=== PATIENT | male | born 1950 | race Caucasian/White ===

== ENCOUNTER → 2016-06-14 | Outpatient (CLI) | payer OTHER | LOC: M WUC 09:37 | PROVIDERS: ATTEND Physician Assistant Medical | DX: E78.2 Mixed hyperlipidemia (principal); E55.9 Vitamin D deficiency, unspecified ==

== ENCOUNTER → 2016-09-01 | Outpatient (CLI) | payer OTHER ==
[~2016-09-01] VITALS: Ht 185.4 cm; Wt 111.1 kg
[~2016-09-01] MED LIST: ARTHTAB4 PO; ASPI1TAB PO; CAND32TA9 PO; CHLO125TA PO; FENO130C PO; LIPI20TA PO; LOVA1CAP17 PO; MONT10TA2 PO; NS 1,000 ML IV SCH; OMEP20CA3 PO; PROPOFOL 200 MG/20 ML VIAL As Ordered ONE; TRAM50TA2 PO; VITA-112 PO; XYZA5TAB2 PO
--- NOTE | 2016-09-01 11:05 | ROOR ---
Patient Name: Danny Parker Procedure Date: 09/01/2016 10:33 AM Date of : 1950 Age: 66 Room: [facility] Gender: Male Note Status: Finalized Procedure: Colonoscopy Indications: Screening for colorectal malignant neoplasm, Incidental change in bowel habits noted Providers: Dharmesh HOPPER MD Referring MD: ANNA RIGGS MD Requesting Provider: Medicines: Monitored Anesthesia Care Complications: No immediate complications. Procedure: Pre-Anesthesia Assessment: - The heart rate, respiratory rate, oxygen saturations, blood pressure, adequacy of pulmonary ventilation, and response to care were monitored throughout the procedure. The Colonoscope was introduced through the anus and advanced to 5 cm into the ileum. The colonoscopy was performed without difficulty. The patient tolerated the procedure well. The quality of the bowel preparation was good. Findings: The perianal and digital rectal examinations were normal. (Exam: Complete, Prep: Good or Excellent.) The terminal ileum contained a single erosion. This was biopsied with a cold forceps for histology. Internal hemorrhoids were found during retroflexion. The hemorrhoids were mild. A few small-mouthed diverticula were found in the sigmoid colon. The entire examined colon appeared normal on direct and retroflexion views. Impression: - The entire examined colon is normal on direct and retroflexion views. - A single erosion in the terminal ileum. Biopsied. - Internal hemorrhoids. - Mild diverticulosis in the sigmoid colon. Recommendation: - Telephone endoscopist for pathology results in 2 weeks. - Repeat colonoscopy in 10 years for screening purposes. Dharmesh Hopper MD Dharmesh HOPPER MD 09/01/2016 11:04:59 AM This report has been signed electronically. Number of Addenda: 0 Note Initiated On: 09/01/2016 10:33 AM Estimated Blood Loss: Estimated blood loss: none.
[2016-09-01 11:25] VITALS: BP 148/91
== END | disposition home or self-care (01) ==
LOC: M OPP 09:14
PROVIDERS: ATTEND Internal Medicine Gastroenterology
DX: R19.4 Change in bowel habit (principal); K64.8 Other hemorrhoids; K57.30 Diverticulosis of large intestine without perforation or abscess without bleeding; K63.3 Ulcer of intestine; E78.5 Hyperlipidemia, unspecified; K44.9 Diaphragmatic hernia without obstruction or gangrene; M19.90 Unspecified osteoarthritis, unspecified site; Z85.828 Personal history of other malignant neoplasm of skin; Z88.2 Allergy status to sulfonamides; Z88.8 Allergy status to other drugs, medicaments and biological substances; Z79.899 Other long term (current) drug therapy

== ENCOUNTER → 2016-11-03 | Outpatient (CLI) | payer OTHER ==
[~2016-11-03] MED LIST changes: +CHLO25TA PO; +LEVOTAB10 PO; -NS 1,000 ML IV SCH; +PATA0.6S; -PROPOFOL 200 MG/20 ML VIAL As Ordered ONE
[2016-11-03 10:55] LABS: MEAN CORPUSCULAR HEMOGLOBIN 29.6 pg (27.0-33.0); MEAN CORPUSCULAR HGB CONC 33.7 g/dl (32.0-36.5); MEAN CORPUSCULAR VOLUME 87.9 fl (80.0-96.0); RED CELL DISTRIBUTION WIDTH 13.8 % (11.5-14.5); WHITE BLOOD COUNT 3.6 K/mm3 (4.0-10.0)
[2016-11-03 11:00] LABS: INR 1.11
--- NOTE | 2016-11-03 11:00 | REP ---
Clinical: Pre admission . Comparison: 10/27/2015 . Technique: PA and lateral. Findings: The mediastinum and cardiac silhouette are normal. The lung gil are clear and without acute consolidation, effusion, or pneumothorax. The skeletal structures are intact and normal. Impression: 1. No acute cardiopulmonary process. Signed by Felipe Aviles MD 11/03/2016 10:52 A
[2016-11-03 11:13] LABS: ALBUMIN 4.1 GM/DL (3.2-5.2); ALBUMIN/GLOBULIN RATIO 1.41 (1.00-1.93); ALKALINE PHOSPHATASE 44 U/L (45-117); ALT/SGPT 42 U/L (12-78); ANION GAP 4 MEQ/L (8-16); AST/SGOT 22 U/L (15-37); BILIRUBIN,TOTAL 0.6 MG/DL (0.2-1.0); BLOOD UREA NITROGEN 18 MG/DL (7-18); CALCIUM LEVEL 8.8 MG/DL (8.8-10.2); CARBON DIOXIDE LEVEL 26 MEQ/L (21-32); CHLORIDE LEVEL 110 MEQ/L (98-107); CREATININE FOR GFR 1.13 MG/DL (0.70-1.30); GLOMERULAR FILTRATION RATE > 60.0 (>49); GLUCOSE, FASTING 91 MG/DL (80-110); POTASSIUM SERUM 4.2 MEQ/L (3.5-5.1); SODIUM LEVEL 140 MEQ/L (136-145)
--- NOTE | 2016-11-03 14:41 | ECGEPIP ---
Stationary ECG Study [facility] Test Date: 2016-11-03 Pat Name: GABY MULTANI Department: Room: - Gender: M [employer] Specialist: BARRETT : 1950 Requested By: Andrea Desouza Order Number: [id number] Reading MD: Lv Gan Measurements Intervals [place] Rate: 63 P: -4 PA: 146 QRS: -15 QRSD: 106 T: 40 QT: 395 QTc: 407 Interpretive Statements SINUS RHYTHM Normal Electronically Signed On 11-03-2016 14:41:37 EDT by Lv Gan
--- NOTE | 2016-11-08 19:10 | HPE ---
DATE OF PLANNED ADMISSION: 11/10/2016 ATTENDING PHYSICIAN: Andrea Navarro MD CHIEF COMPLAINT: Left knee pain and stiffness. HISTORY: Danny is a 66-year-old male with progressively worsening left knee pain and stiffness. He has failed to improve with conservative management. He has elected for surgery for his continued symptoms with weightbearing activities and activities of daily living. He has consented for a left total knee arthroplasty with Dr. Navarro. Medical optimization pending with Dr. Ballard and is not present for review today. CURRENT MEDICATIONS: - tramadol 50 mg every 4 to 6 hours as needed for pain - Patanase 0.6% daily - vitamin D3 2000 units daily - Singulair 10 mg daily - omeprazole 20 mg daily - Lovaza 2 grams, two by mouth twice daily - Lipitor 40 mg daily - Ativan 16 mg daily - Xyzal 5 mg at bedtime - fenofibrate 50 mg daily - chlorthalidone 25 mg daily - Veramyst 27.5 mcg daily ALLERGIES: SULFA DRUGS, CEFTIN. MEDICAL HISTORY: Hypertension. Hyperlipidemia. Gastroesophageal reflux. Arthritis. SURGICAL HISTORY: Tonsillectomy. Bilateral shoulder surgery. SOCIAL HISTORY: The patient is a former smoker and occasionally drinks alcoholic beverages. REVIEW OF SYSTEMS: The patient denies, fever, chills, nausea, vomiting or diarrhea. He denies chest pain, shortness of breath, lightheadedness, or headaches. He denies any recent upper respiratory or urinary tract infection symptoms. He does have persistent pain in the left knee with weightbearing activities. PHYSICAL EXAMINATION: Well-nourished, well-developed male in no apparent distress. Musculoskeletal: Inspection of the left knee reveal no gross abnormalities. Skin is intact. The patient is in a well-fitting knee brace. There is no irritability elicited with range of motion. His calf is soft and nontender to palpation. The patient does have both medial and lateral joint line tenderness. His pedal pulses are palpable. Neck: Supple without lymphadenopathy or jugular venous distention. Lungs: Clear to auscultation bilaterally. Heart: Regular rate and rhythm. Abdomen: Bowel sounds are present. VITAL SIGNS: Height 6 foot 1 inch, weight 246.2 pounds, temperature 96.5. Blood pressure 129/85, pulse rate 75, respirations 17. LABORATORY DATA: Chest x-ray: No acute cardiopulmonary process. EKG: Sinus rhythm. Nasal and sinus culture: Normal rima. Complete blood count: WBC decreased at 3.6, RBC 4.39. Hemoglobin decreased at 13, hematocrit decreased at 38.6. Platelets decreased at 133. Erythrocyte sedimentation rate 8. Comprehensive metabolic profile: Fasting glucose 91, BUN 18, creatinine 1.13, GFR greater than 60, sodium 140, potassium 4.2. Chloride elevated at 110. Carbon dioxide 26, anion gap decreased at 4. Calcium 8.8. AST 22, ALT 42. Alkaline phosphatase decreased at 44, total bilirubin 0.6. Total protein 7.0, albumin 4.1, albumin globulin ratio 1.41. Prothrombin time 14.4, INR 1.11. Urinalysis: Positive for 1+ squamous epithelial cells and a small amount of mucus. Urine culture shows no growth. DIAGNOSIS: Symptomatic osteoarthritis of the left knee with x-rays notable for end-stage degenerative changes. PLAN: The patient has consented for a left total knee arthroplasty by Dr. Navarro.
== END ==
LOC: M ADMPAT 09:21
PROVIDERS: ATTEND Orthopaedic Surgery
DX: Z01.818 Encounter for other preprocedural examination (principal); M17.12 Unilateral primary osteoarthritis, left knee

== ENCOUNTER 2016-11-10 07:11 | Inpatient (IN) | payer OTHER ==
[2016-11-03 09:43] VITALS: BP 152/89
[2016-11-10] VITALS (8 sets, daily range): BP systolic 120–132; BP diastolic 60–76; O2SAT 97
[~2016-11-10] VITALS: Ht 190.5 cm; Wt 112.0 kg
[2016-11-10] MEDS ORDERED: ROPIvacaine 0.5% 30 ML INJECTION (J2795) As Ordered ONE (07:19)
[2016-11-10] MEDS ORDERED: TRANEXAMIC ACID 100 MG/ML 10ML VIAL As Ordered ONE (07:19)
[2016-11-10] MEDS ORDERED: EPINEPHrine INJ 1 MG/ML 1ML AMP As Ordered ONE (07:20)
[2016-11-10] MEDS ORDERED: BUPIVACAINE HCL 0.5% 10 ML VIAL As Ordered ONE (07:20)
[2016-11-10] MEDS ORDERED: ceFAZolin 1GM INJ (J0690) As Ordered ONE (07:20)
[2016-11-10] MEDS ORDERED: ACETAMINOPHEN 500 MG TAB PO ONE (07:30)
[2016-11-10] MEDS ORDERED: VANCOMYCIN HCL 1,000 MG, VIAL MATE ADAPTER 1 EACH in D5W 250 ML IV ONE ×2 (07:30→21:00)
[2016-11-10] MEDS ORDERED: LR 1,000 ML IV ONE (07:30)
[2016-11-10] MEDS: CANDESARTAN 16 MG TABLET PO SCH (09:00)
[2016-11-10] MEDS: MONTELUKAST 10 MG TAB PO SCH (09:00)
[2016-11-10] MEDS: CETIRIZINE (ZyrTEC) 10 MG TAB PO SCH (09:00)
[2016-11-10] MEDS: VITAMIN D 1,000 INTERNATIONAL UNITS TABLET PO SCH (09:00)
[2016-11-10] MEDS: OMEPRAZOLE 20 MG CAP PO SCH (09:00)
[2016-11-10] MEDS ORDERED: MIDAZOLAM INJ 2 MG/2 ML VIAL (J2250) As Ordered ONE ×2 (09:07→10:39)
[2016-11-10] MEDS ORDERED: fentaNYL 100 MCG/2 ML INJECTION (J3010) As Ordered ONE ×3 (09:07→10:39)
[2016-11-10] MEDS ORDERED: MIDAZOLAM INJ 2 MG/2 ML VIAL (J2250) IV ONE (09:45)
[2016-11-10] MEDS ORDERED: fentaNYL 100 MCG/2 ML INJECTION (J3010) IV ONE (09:45)
[2016-11-10] MEDS ORDERED: CLINDAMYCIN INJ 900MG/6ML VIAL As Ordered ONE (10:13)
[2016-11-10] MEDS ORDERED: LIDOCAINE 2% INJ 100 MG/5 ML SDV (FOR ANES.) As Ordered ONE (10:39)
[2016-11-10] MEDS ORDERED: PROPOFOL 500 MG/50 ML VIAL As Ordered ONE (10:39)
[2016-11-10] MEDS ORDERED: ONDANSETRON 4MG/2ML VIAL (J2405) As Ordered ONE (10:39)
[2016-11-10] MEDS ORDERED: PROPOFOL 200 MG/20 ML VIAL As Ordered ONE (10:43)
[2016-11-10] MEDS ORDERED: ePHEDrine SULFATE 25 MG/5 ML(5MG/ML) SYRINGE As Ordered ONE (10:55)
[2016-11-10] MEDS ORDERED: MORPHINE 1MG/ML IN 0.9% NACL 100ML IV BAG As Ordered ONE (12:40)
[2016-11-10] MEDS ORDERED: METOCLOPRAMIDE INJ 10MG/2ML VIAL (J2765) IV PRN (13:00)
[2016-11-10] MEDS ORDERED: PERCOCET 5MG/325MG TAB PO PRN (13:00)
[2016-11-10] MEDS ORDERED: MEPERIDINE INJ 25 MG/ML VIAL (J2175) IV PRN (13:00)
[2016-11-10] MEDS ORDERED: fentaNYL 100 MCG/2 ML INJECTION (J3010) IV PRN (13:00)
[2016-11-10] MEDS ORDERED: ONDANSETRON 4MG/2ML VIAL (J2405) IV PRN ×2 (13:00→13:15)
--- NOTE | 2016-11-10 13:08 | CR.PDOC ---
[facility] Consultation Consultation HOSPITALIST CONSULT NOTE Date of consult: 11/10/2016 Referring Provider: Dr. Franklin PCP: Dr. Ballard in [place] Reason for Consult: Medical management of chronic issues HPI: 66-year-old male with hypertension, hyperlipidemia, GERD, seasonal allergies, osteoarthritis who underwent elective left total knee arthroplasty today with Dr. Franklin. We have been consulted for management of chronic medical issues. The patient is seen in the recovery room, following an uncomplicated surgery. He states that he feels well and denies any chest pain, difficulty breathing, or vomiting. Past medical history: Hypertension, hyperlipidemia, GERD, seasonal allergies, osteoarthritis Past surgical history:, Tonsillectomy, bilateral shoulder surgery, left total knee Family history: The patient reports multiple types of cancer affecting most of his immediate family members, he denies any hypertension or hyperlipidemia Social history: The patient denies smoking any cigarettes, but does report an occasional cigar. He states that he drinks socially but does not binge drink at any point. Allergies: Cefuroxime, sulfa Review of systems: General: Negative for fever and chills Eyes: Negative for vision changes and ocular discharge ENT: Negative For sore throat and nose bleed Cardiovascular: Negative for chest pain and palpitations Respiratory: Negative for shortness of breath and cough GI: Negative for nausea, vomiting, diarrhea, constipation Musculoskeletal: Negative for neck and back pain Skin: Negative for rash Neuro: Negative for headache, dizziness, numbness, tingling Psych: Negative for depression and suicidal ideation Endocrine: Negative for polyuria : Negative for dysuria Heme: Negative for bleeding Home meds: See below Physical exam: Vital signs: Vital Signs Date Time Temp Pulse Resp B/P (MAP) Pulse Ox O2 Delivery O2 Flow Rate FiO2 11/10/16 13:00 96.6 58 18 130/79 (96) 99 Nasal Cannula 2 Gen.: awake, alert, no acute distress Eyes: Extraocular movements intact, normal sclera ENT: Moist mucous membranes Cardiovascular: RRR, no murmurs rubs or gallops Lungs: clear to auscultation bilaterally, no rales, rhonchi, or wheeze Abdomen: Soft, NT/ND, normal BS Extremities: Intact pedal pulses bilaterally Neuro: alert and oriented 3, normal speech, no focal deficits Psych: Normal mood with congruent affect Labs and radiology: None to review Assessment and plan: 66-year-old male with hypertension, hyperlipidemia, GERD, osteoarthritis, seasonal allergies who underwent elective left total knee arthroplasty today with Dr. Franklin. We have been consulted for management of chronic medical conditions. 1. Osteoarthritis: Management as per orthopedic team; status post left TKA today. 2. Hypertension: Continue home ARB and chlorthalidone. 3. Hyperlipidemia: Continue home statin and omega-3. 4. GERD: Continue home PPI. 5. Seasonal allergies: Continue home Singulair. Patient takes Xyzal at home, which we do not have on formulary, so we will substitute Zyrtec. DVT prophylaxis: As per orthopedic team; currently holding home aspirin given surgery today Thank you for this consult. We will continue to follow along with you; Dr. Anthony will assume coverage tomorrow morning. Vital Signs/I&O Vital Signs Date Time Temp Pulse Resp B/P (MAP) Pulse Ox O2 Delivery O2 Flow Rate FiO2 11/10/16 13:00 96.6 58 18 130/79 (96) 99 Nasal Cannula 2 Allergies Coded Allergies: Unclassified Drugs (Unverified Allergy, Intermediate, BROMIDE- BLISTERS, ) Cefuroxime (Unverified Adverse Reaction, Intermediate, BLISTERS MOUTH AND HANDS, 11/03/16) Sulfa Antibiotics (Verified Adverse Reaction, Intermediate, blisters mouth and hand, 11/03/16) Home Medications Scheduled (Arthrotec 75 75-0.2 mg) 1 Tab Tab, 150 MG PO DAILY, (Reported) (Patanase) 0.6 % Spr, 2 PUFF NA DAILY, (Reported) Aspirin (Aspirin 81) 81 Mg Tab, 81 MG PO DAILY, #30 (Reported) Atorvastatin Calcium (Lipitor) 20 Mg Tab, 40 MG PO BID, (Reported) Candesartan Cilexetil (Candesartan Cilexetil) 32 Mg Tab, 32 MG PO DAILY, ( Reported) Chlorthalidone (Chlorthalidone) 12.5 Mg Halftab, 12.5 MG PO 3XW, (Reported) Monday Cholecalciferol (Vitamin D-1000) 1,000 Unit Tab, 2,000 UNIT PO DAILY, (Reported) Fenofibrate (Fenofibrate) 130 Mg Cap, 130 MG PO DAILY, (Reported) Levocetirizine Dihydrochloride (Xyzal) 5 Mg Tab, 5 MG PO DAILY, (Reported) Levocetirizine Hydrochloride (Levocetirizine Dihydrochl) 5 Mg Tab, 5 MG PO DAILY , (Reported) Montelukast Sodium (Montelukast Sodium) 10 Mg Tab, 10 MG PO DAILY, (Reported) [place] 3 Polyunsat Fatty Acids (Lovaza 1 gm) 1 Cap Cap, 1 CAP PO BID, (Reported) Omeprazole (Omeprazole) 20 Mg Cap, 20 MG PO DAILY, (Reported) Scheduled PRN Tramadol HCl (Tramadol HCl) 50 Mg Tab, 50 MG PO BIDP PRN for PAIN, (Reported) CATIE HERRERA Nov 10, 2016 13:08
[2016-11-10] MEDS ORDERED: PATIENT IS CURRENTLY ON AN ON-Q PAIN BUSTER PAIN RELIEF SYSTEM XX SCH (13:15)
[2016-11-10] MEDS ORDERED: NALBUPHINE HCL 10 MG/ML AMP (J2300) IV PRN (13:15)
[2016-11-10] MEDS ORDERED: NALOXONE INJ 0.4 MG/1 ML VIAL (J2310) IV PRN (13:15)
[2016-11-10] MEDS ORDERED: diphenhydrAMINE INJ 50MG/ML VIAL (J1200) IV PRN (13:15)
[2016-11-10] MEDS ORDERED: MORPHINE 1MG/ML IN 0.9% NACL 100ML IV BAG IV PRN (13:15)
[2016-11-10] MEDS ORDERED: FLEET ENEMA PR PRN (13:15)
[2016-11-10] MEDS ORDERED: ACETAMINOPHEN TAB 650MG DOSE (2X325MG) PO PRN (13:15)
[2016-11-10] MEDS ORDERED: EPIDURAL/PCA KEYS XX PRN (13:15)
[2016-11-10] MEDS: OMEGA-3 1050MG CAPSULE PO SCH ×2 (14:49→20:05)
[2016-11-10] MEDS: ATORVASTATIN 20 MG TAB PO SCH ×2 (14:49→20:05)
[2016-11-10] MEDS: LR 1,000 ML IV SCH (14:51)
[2016-11-10] MEDS ORDERED: WARFARIN SOD 5 MG TAB PO SCH (17:00)
--- NOTE | 2016-11-10 19:24 | RO ---
DATE OF PROCEDURE: 11/10/2016 PREOPERATIVE DIAGNOSIS: Left knee degenerative arthritis. POSTPROCEDURE DIAGNOSIS: Left knee degenerative arthritis. PROCEDURE: Left total knee arthroplasty using a size 4 femur, 4 tibia and a 15 polyethylene insert. Femoral component was cruciate-retaining. Prosthesis was made by [employer]. It was a PFC knee. SURGEON: Dr. Andrea Navarro CONSTRUCTION EQUIPMENT OVERHAULER: John Jen Lr ANESTHESIA: Left femoral nerve block with spinal. COMPLICATIONS: None. ESTIMATED BLOOD LOSS: Less than 50 mL. SPECIMENS: Joint surface. DESCRIPTION OF PROCEDURE: Antibiotics were given intravenously preoperatively, then a successful left femoral nerve block and spinal anesthetic was induced, tourniquet placed on the left upper thigh and not inflated. The left lower extremity was prepped and draped in the usual sterile fashion, elevated. Then, after appropriate time-out, tourniquet was inflated, then a longitudinal incision was made for a medial parapatellar approach to the knee. Bovie cautery was used to coagulate crossing vessels. Medial parapatellar arthrotomy performed. Subperiosteal dissection around the proximal medial portion of the tibia was performed, then the patella was everted and the knee flexed. Anterior cruciate ligament (ACL) was debrided. The drill was placed down the center of the femoral canal followed by the intramedullary zaira and then distal femoral cutting jig set at 5 degree valgus cut at 10 mm resection level for a left knee. It was pinned into position. Distal femoral cut performed. AP sizing jig measured for a size #4, which was pinned in position, followed by the 3-degree external jig. It was pinned and then the 4-in-1 block applied and secured to the distal femur. Then, the anterior, posterior, chamfer cuts performed, taking great care to protect the surrounding soft tissues. We then exposed the proximal tibia and used the extramedullary zaira to estimate our position of being parallel to the mechanical axis of the tibia. Referencing off the medial tibial condyle at 4 mm resection level, the jig was set and pinned into position and extramedullary zaira was used as a secondary check to confirm that we appeared to be parallel to the mechanical axis of the tibia. We then performed a proximal tibial osteotomy, then placed the lamina scallop raker laterally and performed a completion medial meniscectomy, debridement of the posteromedial osteophytes, placed the lamina scallop raker then medially and performed a completion lateral meniscectomy, debridement of the posterolateral osteophytes. Spacer blocks then were trialed. The 10 was quite loose, the 12.5 was still a bit loose to varus/valgus stress testing, mainly in extension, reasonably snug in flexion, but I felt the 15 would be the best stability for him and still allowed good flexion and he had a full extension. I exposed the proximal tibia then at this point, sized for a #4 tibial tray, which was pinned into position, followed by the reamer and broach, then the trial polyethylene, then the trial femoral component, brought the knee into extension, everted the patella, performed a patellar osteotomy, sized for a 35 button, the lug holes were drilled. The patellar trial was placed, and the patellofemoral tracking was anatomic. Thus, at this point, I felt this was the acceptable stability and implant choice; thus, I drilled the lug holes for the femur, then removed all of the trial components. Mrs. Jen Lr mixed the cement on the back table as I prepared the bony surfaces for cementing with a copious amount of pulsatile lavage irrigant solution. She was also critical to the success of the procedure by helping to provide appropriate soft tissue retraction and manipulation of the knee as needed, to close the wound, helped prepare the patient amongst many other tasks. Once all of the bony surfaces had been thoroughly dried, we cemented the tibial tray, removed excess cement, placed the polyethylene and cemented the femoral component, removed excess cement and brought the knee into extension, then cemented the patellar button and held it with a clamp until the cement had hardened. Copiously pulsatile lavage irrigated out the knee joint as the cement was hardening and then once that had been completed, I placed the tranexamic acid in the knee joint, then closed the apex of the arthrotomy with two #1 PDS sutures, then the medial parapatellar area was closed with a single #1 PDS suture, then a double-armed #1 Stratafix was used to close the capsule. Then, we let the tourniquet down at this point, then a copious amount of pulsatile lavage irrigant solution was instilled in the deep soft tissues. They were then closed with interrupted #2-0 PDS sutures, skin was closed with janusz, covered by Adaptic dry sterile bulky dressing. He was then transferred to the recovery room in stable condition. There were no intraoperative complications.
[2016-11-11] MEDS: LR 1,000 ML IV SCH (01:30)
[2016-11-11 02:00] VITALS: BP 127/71
[2016-11-11 06:00] VITALS: BP 149/78
[2016-11-11 06:15] LABS: BASO % 0.1 % (0.0-1.0); EOS % 0.6 % (0.0-3.0); LARGE UNSTAINED CELL # 0.1 K/mm3 (0.0-0.4); LARGE UNSTAINED CELL % 1.1 % (0.0-4.0); LYMPH # 0.7 K/mm3 (1.5-4.5); LYMPH % 8.5 % (24.0-44.0); MEAN CORPUSCULAR HEMOGLOBIN 30.2 pg (27.0-33.0); MEAN CORPUSCULAR VOLUME 88.8 fl (80.0-96.0); MONO # 0.4 K/mm3 (0.0-0.8); MONO % 4.9 % (0.0-5.0); NEUTROPHILS # 7.1 K/mm3 (1.8-7.7); NEUTROPHILS % 84.7 % (36.0-66.0); PLATELET COUNT, AUTOMATED 130 k/mm3 (150-450); RED CELL DISTRIBUTION WIDTH 13.7 % (11.5-14.5); WHITE BLOOD COUNT 8.4 K/mm3 (4.0-10.0)
[2016-11-11 06:19] LABS: INR 1.39
[2016-11-11] MEDS ORDERED: PERCOCET 5MG/325MG TAB PO PRN (06:30)
[2016-11-11] MEDS ORDERED: ONDANSETRON 4 MG TAB (S0181) PO PRN (06:30)
[2016-11-11 06:38] LABS: ANION GAP 7 MEQ/L (8-16); BLOOD UREA NITROGEN 14 MG/DL (7-18); CALCIUM LEVEL 8.5 MG/DL (8.8-10.2); CARBON DIOXIDE LEVEL 28 MEQ/L (21-32); CHLORIDE LEVEL 105 MEQ/L (98-107); CREATININE FOR GFR 1.13 MG/DL (0.70-1.30); GLOMERULAR FILTRATION RATE > 60.0 (>49); GLUCOSE, FASTING 157 MG/DL (80-110); MAGNESIUM LEVEL 2.1 MG/DL (1.8-2.4); POTASSIUM SERUM 3.8 MEQ/L (3.5-5.1); SODIUM LEVEL 140 MEQ/L (136-145)
[2016-11-11] MEDS ORDERED: ROPIvacaine 0.5% 30 ML INJECTION (J2795) ONE (07:22)
[2016-11-11] MEDS ORDERED: dexameTHASONE 10 MG/1 ML VIAL PRES.FREE (J1100) ONE (07:22)
[2016-11-11] MEDS ORDERED: LIDOCAINE 1% MDV 20ML VIAL ONE (07:22)
[2016-11-11] MEDS: PERCOCET 5MG/325MG TAB PO PRN ×3 (08:53→17:50)
[2016-11-11] MEDS: MONTELUKAST 10 MG TAB PO SCH (08:54)
[2016-11-11] MEDS: OMEPRAZOLE 20 MG CAP PO SCH (08:54)
[2016-11-11] MEDS: SENOKOT S TAB PO SCH ×2 (08:54→20:20)
[2016-11-11] MEDS: OMEGA-3 1050MG CAPSULE PO SCH (08:54)
[2016-11-11] MEDS: VITAMIN D 1,000 INTERNATIONAL UNITS TABLET PO SCH (08:55)
[2016-11-11] MEDS: ATORVASTATIN 20 MG TAB PO SCH ×2 (08:55→20:08)
[2016-11-11] MEDS: MOM 30ML SUSPENSION UDC PO SCH (09:00)
[2016-11-11] MEDS: MIRALAX *UNIT DOSE* 17GM PACKET PO SCH (09:00)
[2016-11-11] MEDS: CANDESARTAN 16 MG TABLET PO SCH (09:00)
[2016-11-11] MEDS ORDERED: CHLORTHALIDONE 12.5MG PER 1/2 TABLET PO SCH (09:00)
[2016-11-11] MEDS: CETIRIZINE (ZyrTEC) 10 MG TAB PO SCH (09:00)
--- NOTE | 2016-11-11 09:04 | REP ---
Left knee two views postoperative study: There is a total knee arthroplasty with the components tightly applied and in satisfactory positions alignment both projections. Skin janusz are incidentally noted. Signed by Gerson Gordon MD 11/11/2016 08:57 A
[2016-11-11 10:00] VITALS: BP 170/93
[2016-11-11 14:00] VITALS: BP 171/90
[2016-11-11] MEDS ORDERED: WARFARIN SOD 5 MG TAB PO SCH (17:00)
[2016-11-11] MEDS ORDERED: diphenhydrAMINE 25 MG CAP PO PRN (17:15)
[2016-11-11] MEDS: MORPHINE 15 MG SA TAB PO SCH (20:09)
[2016-11-11 21:04] VITALS: O2SAT 94
[2016-11-11 22:00] VITALS: BP 164/82
[2016-11-12] MEDS: PERCOCET 5MG/325MG TAB PO PRN ×3 (00:28→10:44)
[2016-11-12 06:00] VITALS: BP 158/72
[2016-11-12 06:16] LABS: BASO % 0.4 % (0.0-1.0); EOS # 0.1 K/mm3 (0.0-0.50); EOS % 1.2 % (0.0-3.0); LARGE UNSTAINED CELL # 0.1 K/mm3 (0.0-0.4); LARGE UNSTAINED CELL % 1.3 % (0.0-4.0); LYMPH # 0.9 K/mm3 (1.5-4.5); LYMPH % 11.2 % (24.0-44.0); MEAN CORPUSCULAR HEMOGLOBIN 30.3 pg (27.0-33.0); MEAN CORPUSCULAR HGB CONC 34.5 g/dl (32.0-36.5); MEAN CORPUSCULAR VOLUME 87.7 fl (80.0-96.0); MONO # 0.5 K/mm3 (0.0-0.8); MONO % 7.2 % (0.0-5.0); NEUTROPHILS # 5.9 K/mm3 (1.8-7.7); NEUTROPHILS % 78.7 % (36.0-66.0); PLATELET COUNT, AUTOMATED 138 k/mm3 (150-450); RED CELL DISTRIBUTION WIDTH 14.1 % (11.5-14.5); WHITE BLOOD COUNT 7.5 K/mm3 (4.0-10.0)
[2016-11-12 06:18] LABS: INR 1.82
[2016-11-12 06:26] LABS: ANION GAP 5 MEQ/L (8-16); BLOOD UREA NITROGEN 12 MG/DL (7-18); CALCIUM LEVEL 8.8 MG/DL (8.8-10.2); CARBON DIOXIDE LEVEL 28 MEQ/L (21-32); CHLORIDE LEVEL 105 MEQ/L (98-107); GLOMERULAR FILTRATION RATE > 60.0 (>49); GLUCOSE, FASTING 103 MG/DL (80-110); MAGNESIUM LEVEL 2.5 MG/DL (1.8-2.4); POTASSIUM SERUM 3.8 MEQ/L (3.5-5.1); SODIUM LEVEL 138 MEQ/L (136-145)
[2016-11-12] MEDS ORDERED: PERC5TAB6 PO (07:49)
[2016-11-12] MEDS ORDERED: COUM2.5T11 PO (07:49)
[2016-11-12] MEDS ORDERED: MORP15TASA PO (07:57)
[2016-11-12 08:15] VITALS: BP 188/110
[2016-11-12] MEDS: MIRALAX *UNIT DOSE* 17GM PACKET PO SCH (09:26)
[2016-11-12] MEDS: CANDESARTAN 16 MG TABLET PO SCH (09:27)
[2016-11-12] MEDS: ATORVASTATIN 20 MG TAB PO SCH (09:27)
[2016-11-12] MEDS: SENOKOT S TAB PO SCH (09:27)
[2016-11-12] MEDS: OMEPRAZOLE 20 MG CAP PO SCH (09:28)
[2016-11-12] MEDS: VITAMIN D 1,000 INTERNATIONAL UNITS TABLET PO SCH (09:28)
[2016-11-12] MEDS: CETIRIZINE (ZyrTEC) 10 MG TAB PO SCH (09:28)
[2016-11-12] MEDS: MONTELUKAST 10 MG TAB PO SCH (09:28)
[2016-11-12] MEDS: MOM 30ML SUSPENSION UDC PO SCH (09:30)
[2016-11-12] MEDS: MORPHINE 15 MG SA TAB PO SCH (09:37)
[2016-11-12 10:45] VITALS: BP 161/91
== END 2016-11-12 10:50 | disposition home health service (06) | DRG 470 ==
LOC: M OR 07:11 → M MS5PR 13:30
PROVIDERS: ADMIT Orthopaedic Surgery; ATTEND Orthopaedic Surgery
PROC: 0SRD0JZ Replacement of Left Knee Joint with Synthetic Substitute, Open Approach (ICD-10-PCS; principal; 2016-11-10 10:10)
DX: M17.12 Unilateral primary osteoarthritis, left knee (principal); K21.9 Gastro-esophageal reflux disease without esophagitis; I10 Essential (primary) hypertension; E78.5 Hyperlipidemia, unspecified; Z88.2 Allergy status to sulfonamides; Z88.8 Allergy status to other drugs, medicaments and biological substances; Z79.899 Other long term (current) drug therapy

== ENCOUNTER 2017-05-17 09:49 | Day surgery (SDC) | payer OTHER ==
[~2017-05-17] VITALS: Ht 185.4 cm; Wt 114.3 kg
[~2017-05-17 09:49] MED LIST changes: +ACETAMINOPHEN 325 MG TAB PO PRN; +BSS with VANC/TOB/EPI for EYE CASES IR ONE; +COUM2.5T17 PO; +CYCLOPENTOLATE 2% OPHTH SOLN 2ML BTL OS ONE; +LIDOCAINE 3.5 % 1ML OPHTH TOPICAL GEL OU ONE; +MORP15TASA PO; +OFLOXACIN 0.3 % (OCUFLOX) OPTH SOL 5ML OS ONE; +PERC5TAB12 PO; +PHENYLEPHRINE 2.5% OPHTH SOL 2ML OS ONE; +PROPARACAINE 0.5% OPHTH SOL 15ML OS PRN; +TRAM1CAP15 PO; +TROPICAMIDE 1% OPHTH SOLN 2ML OS ONE
[2017-05-17] MEDS ORDERED: TRIMETHOBENZAMIDE 300 MG CAP PO PRN (10:00)
[2017-05-17] MEDS ORDERED: TRIAMCINOLONE PRES FR 40 MG/ML 1ML(TRIESENCE)(OR EYE ONLY)(J3300 PER 1MG) As Ordered ONE (10:28)
[2017-05-17] MEDS ORDERED: MOXIFLOXACIN IN BSS 0.25MG/0.25ML INTRACAMERAL INJ (OR EYE ONLY)(J2280) As Ordered ONE (10:28)
[2017-05-17] MEDS ORDERED: POVIDONE-IODINE 5% OPHTH PREP SOL 30ML As Ordered ONE ×2 (10:28→11:19)
[2017-05-17] MEDS ORDERED: LIDOCAINE 1% SDV 5 ML VIAL As Ordered ONE (10:28)
[2017-05-17] MEDS ORDERED: HEALON DUET (HEALON 10MG/ML 0.55ML & HEALON ENDOCOAT 30MG/ML 0.85ML) As Ordered ONE (10:29)
[2017-05-17] MEDS ORDERED: fentaNYL 100 MCG/2 ML INJECTION (J3010) As Ordered ONE (11:08)
[2017-05-17] MEDS ORDERED: MIDAZOLAM INJ 2 MG/2 ML VIAL (J2250) As Ordered ONE (11:08)
--- NOTE | 2017-05-17 11:44 | RO ---
DATE OF PROCEDURE: 05/17/2017 PREPROCEDURE DIAGNOSIS: Cataract of left eye. POSTPROCEDURE DIAGNOSIS: Cataract of left eye. PROCEDURE: Femtosecond laser and phacoemulsification of the intraocular lens with lens implantation left eye. Intraocular lens power used was Hoya, 20 diopter. SURGEON: Richard Perez MD DIALYSIS NURSE: None. ANESTHESIA: Local IV standby. FINDINGS: Cataract of left eye. COMPLICATIONS: None. DESCRIPTION OF PROCEDURE: The patient was brought to the operating room and laid in supine position. A lid speculum was placed, and patient was brought under the femtosecond laser. After the satisfactory placement of the patient interface, primary incision, secondary incision, and arcuate incisions with lens fragmentation was done without any complication per plan. The patients interface was then removed and lid speculum removed. Patient was placed under the microscope. The eye was prepped and draped in a sterile fashion for ophthalmic surgery. Lid speculum was placed. The secondary incision was opened, and EndoCoat was injected into the anterior chamber. The temporal clear corneal incision was then opened and capsulorrhexis removed, followed by hydrodissection. This was followed by phacoemulsification of the lens within the capsular bag. Cortical material was then aspirated, and Healon was injected into the capsular bag. Intraocular lens was then placed. Excess Healon was aspirated. Wound was hydrated. The lid speculum was removed, and patient was returned to the recovery room in stable condition.
[2017-05-17 12:30] VITALS: BP 128/84
== END 2017-05-17 12:31 | disposition home or self-care (01) ==
LOC: M SDC 09:49
PROVIDERS: ATTEND Ophthalmology
DX: H26.9 Unspecified cataract (principal); I10 Essential (primary) hypertension; E78.2 Mixed hyperlipidemia; D69.49 Other primary thrombocytopenia; M19.90 Unspecified osteoarthritis, unspecified site; K21.9 Gastro-esophageal reflux disease without esophagitis; J30.2 Other seasonal allergic rhinitis; R01.1 Cardiac murmur, unspecified; K58.9 Irritable bowel syndrome, unspecified; Z87.891 Personal history of nicotine dependence; Z79.899 Other long term (current) drug therapy; Z88.8 Allergy status to other drugs, medicaments and biological substances; Z88.2 Allergy status to sulfonamides; Z88.1 Allergy status to other antibiotic agents
CPT/HCPCS: 66984; J2250; J2280; J3010; J3300

== ENCOUNTER → 2017-11-07 | Outpatient (CLI) | payer OTHER ==
[2017-11-07 10:54] LABS: HEMOGLOBIN 13.4 g/dl (13.5-17.5); MEAN CORPUSCULAR HEMOGLOBIN 28.8 pg (27.0-33.0); MEAN CORPUSCULAR HGB CONC 33.5 g/dl (32.0-36.5); MEAN CORPUSCULAR VOLUME 85.8 fl (80.0-96.0); PLATELET COUNT, AUTOMATED 128 10^3/uL (150-450); RED BLOOD COUNT 4.66 10^6/uL (4.30-6.10); RED CELL DISTRIBUTION WIDTH 14.6 % (11.5-14.5); WHITE BLOOD COUNT 4.5 10^3/uL (4.0-10.0)
[2017-11-07 11:05] LABS: INR 1.09; PROTHROMBIN TIME 14.3 SECONDS (12.4-14.5)
[2017-11-07 11:23] LABS: ALBUMIN 4.3 GM/DL (3.2-5.2); ALBUMIN/GLOBULIN RATIO 1.54 (1.00-1.93); ALKALINE PHOSPHATASE 67 U/L (45-117); ALT/SGPT 60 U/L (12-78); ANION GAP 5 MEQ/L (8-16); AST/SGOT 33 U/L (7-37); BILIRUBIN,TOTAL 1.1 MG/DL (0.2-1.0); BLOOD UREA NITROGEN 18 MG/DL (7-18); CALCIUM LEVEL 8.6 MG/DL (8.8-10.2); CARBON DIOXIDE LEVEL 28 MEQ/L (21-32); CHLORIDE LEVEL 107 MEQ/L (98-107); CREATININE FOR GFR 1.18 MG/DL (0.70-1.30); GLOMERULAR FILTRATION RATE > 60.0 (>49); GLUCOSE, FASTING 87 MG/DL (70-100); SODIUM LEVEL 140 MEQ/L (136-145); TOTAL PROTEIN 7.1 GM/DL (6.4-8.2)
[2017-11-07 11:30] LABS: ERYTHROCYTE SEDIMENTATION RATE 7 mm/hr (0-20)
== END ==
LOC: M ADMPAT 09:14
DX: Z01.818 Encounter for other preprocedural examination (principal); M17.11 Unilateral primary osteoarthritis, right knee; I44.60 Unspecified fascicular block

== ENCOUNTER 2017-11-14 08:02 | Inpatient (IN) | payer OTHER ==
[~2017-11-14 08:02] MED LIST changes: -ACETAMINOPHEN 325 MG TAB PO PRN; -ARTHTAB4 PO; -ASPI1TAB PO; -BSS with VANC/TOB/EPI for EYE CASES IR ONE; -CAND32TA9 PO; -CHLO125TA PO; -CHLO25TA PO; -COUM2.5T17 PO; -CYCLOPENTOLATE 2% OPHTH SOLN 2ML BTL OS ONE; -FENO130C PO; -LEVOTAB10 PO; -LIDOCAINE 3.5 % 1ML OPHTH TOPICAL GEL OU ONE; -LIPI20TA PO; -LOVA1CAP17 PO; -MONT10TA2 PO; -MORP15TASA PO; -OFLOXACIN 0.3 % (OCUFLOX) OPTH SOL 5ML OS ONE; -OMEP20CA3 PO; -PATA0.6S; -PERC5TAB12 PO; -PHENYLEPHRINE 2.5% OPHTH SOL 2ML OS ONE; -PROPARACAINE 0.5% OPHTH SOL 15ML OS PRN; -TRAM1CAP15 PO; -TRAM50TA2 PO; -TROPICAMIDE 1% OPHTH SOLN 2ML OS ONE; -VITA-112 PO; -XYZA5TAB2 PO; +ceFAZolin 1GM INJ (J0690 PER 500MG) As Ordered
[2017-11-14] MEDS ORDERED: VANCOMYCIN 1000 MG/20 ML VIAL (J3370) As Ordered (08:16)
[2017-11-14] MEDS ORDERED: ACETAMINOPHEN 500 MG TAB As Ordered (08:17)
[2017-11-14] MEDS: LR 1,000 ML IV ×3 (09:11→13:00)
[2017-11-14] MEDS: ACETAMINOPHEN 500 MG TAB PO (09:20)
[2017-11-14] MEDS ORDERED: fentaNYL 100 MCG/2 ML INJECTION (J3010) As Ordered ×2 (09:26→09:52)
[2017-11-14] MEDS ORDERED: MIDAZOLAM INJ 2 MG/2 ML VIAL (J2250) As Ordered ×2 (09:26→09:52)
[2017-11-14] MEDS: MIDAZOLAM INJ 2 MG/2 ML VIAL (J2250) IV ×2 (09:34→09:36)
[2017-11-14] MEDS: fentaNYL 100 MCG/2 ML INJECTION (J3010) IV ×2 (09:34→09:38)
[2017-11-14] MEDS: VANCOMYCIN HCL 1,000 MG, VIAL MATE ADAPTER 1 EACH in D5W 250 ML IV ×2 (09:43→22:34)
[2017-11-14] MEDS ORDERED: PROPOFOL 200 MG/20 ML VIAL As Ordered ×3 (09:52→11:05)
[2017-11-14] MEDS ORDERED: BUPIVACAINE/DEXTROSE 0.75% 2 ML AMP As Ordered (10:25)
[2017-11-14] MEDS: CLINDAMYCIN INJ 900MG/6ML VIAL As Ordered (10:54)
[2017-11-14] MEDS: TRANEXAMIC ACID 100 MG/ML 10ML VIAL As Ordered (10:55)
[2017-11-14] MEDS: EPINEPHrine INJ 1 MG/ML 1ML AMP As Ordered (10:55)
[2017-11-14] MEDS ORDERED: ePHEDrine SULFATE 25 MG/5 ML(5MG/ML) SYRINGE As Ordered (11:19)
[2017-11-14] MEDS: BUPIVACAINE LIPOSOME/PF 1.3% 20 ML VIAL (13.3MG/ML)(EXPAREL) As Ordered (11:38)
[2017-11-14] MEDS: BUPIVACAINE HCL 0.25% 10 ML VIAL As Ordered (11:39)
[2017-11-14] MEDS ORDERED: KETOROLAC 60 MG/2 ML VIAL (J1885) As Ordered (12:18)
[2017-11-14] MEDS ORDERED: ONDANSETRON 4MG/2ML VIAL (J2405) As Ordered (12:18)
[2017-11-14] MEDS ORDERED: MORPHINE 1MG/ML IN 0.9% NACL 100ML IV BAG As Ordered (12:23)
[2017-11-14] MEDS ORDERED: diphenhydrAMINE INJ 50MG/ML VIAL (J1200) IV (12:30)
[2017-11-14] MEDS ORDERED: PERCOCET 5MG/325MG TAB PO (12:30)
[2017-11-14] MEDS ORDERED: MORPHINE 1MG/ML IN 0.9% NACL 100ML IV BAG IV (12:30)
[2017-11-14] MEDS ORDERED: EPIDURAL/PCA KEYS XX (12:30)
[2017-11-14] MEDS ORDERED: NALBUPHINE HCL 10 MG/ML AMP (J2300) IV (12:30)
[2017-11-14] MEDS ORDERED: fentaNYL 100 MCG/2 ML INJECTION (J3010) IV (12:30)
[2017-11-14] MEDS ORDERED: METOCLOPRAMIDE INJ 10MG/2ML VIAL (J2765) IV (12:30)
[2017-11-14] MEDS ORDERED: ONDANSETRON 4MG/2ML VIAL (J2405) IV ×2 (12:30)
[2017-11-14] MEDS ORDERED: NALOXONE INJ 0.4 MG/1 ML VIAL (J2310) IV (12:30)
[2017-11-14] MEDS ORDERED: MEPERIDINE INJ 25 MG/ML VIAL (J2175) IV (12:30)
[2017-11-14] MEDS ORDERED: FLEET ENEMA PR (13:00)
[2017-11-14] MEDS ORDERED: ACETAMINOPHEN TAB 650MG DOSE (2X325MG) PO (13:00)
[2017-11-14] MEDS ORDERED: ROPIvacaine 0.5% 30 ML INJECTION (J2795 PER 1MG) (13:04)
[2017-11-14] MEDS ORDERED: LACTATED RINGER'S 1000 ML IV (13:30)
[2017-11-15] MEDS ORDERED: ONDANSETRON 4 MG TAB (S0181) PO (06:30)
[2017-11-15] MEDS ORDERED: PERCOCET 5MG/325MG TAB PO (06:30)
[2017-11-15 06:49] LABS: HEMATOCRIT 37.8 % (42.0-52.0); HEMOGLOBIN 12.5 g/dl (13.5-17.5); MEAN CORPUSCULAR HEMOGLOBIN 28.7 pg (27.0-33.0); MEAN CORPUSCULAR HGB CONC 33.1 g/dl (32.0-36.5); MEAN CORPUSCULAR VOLUME 86.7 fl (80.0-96.0); PLATELET COUNT, AUTOMATED 126 10^3/uL (150-450); RED BLOOD COUNT 4.36 10^6/uL (4.30-6.10); RED CELL DISTRIBUTION WIDTH 14.7 % (11.5-14.5)
[2017-11-15 07:09] LABS: ANION GAP 6 MEQ/L (8-16); BLOOD UREA NITROGEN 12 MG/DL (7-18); CALCIUM LEVEL 8.4 MG/DL (8.8-10.2); CARBON DIOXIDE LEVEL 29 MEQ/L (21-32); CHLORIDE LEVEL 104 MEQ/L (98-107); CREATININE FOR GFR 1.06 MG/DL (0.70-1.30); GLOMERULAR FILTRATION RATE > 60.0 (>49); GLUCOSE, FASTING 136 MG/DL (70-100); POTASSIUM SERUM 4.2 MEQ/L (3.5-5.1); SODIUM LEVEL 139 MEQ/L (136-145)
[2017-11-15] MEDS: MOM 30ML SUSPENSION UDC PO (09:29)
[2017-11-15] MEDS: PERCOCET 5MG/325MG TAB PO (09:29)
[2017-11-15] MEDS: MIRALAX *UNIT DOSE* 17GM PACKET PO (09:29)
[2017-11-15] MEDS: SENOKOT S TAB PO (09:29)
[2017-11-15] MEDS ORDERED: RIVAROXABAN 10 MG TAB (XARELTO) PO (18:00)
== END 2017-11-15 11:45 | disposition home health service (06) | DRG 470 ==
LOC: M OR 08:02 → M MS5PR 13:29
PROC: 0SRC0J9 Replacement of Right Knee Joint with Synthetic Substitute, Cemented, Open Approach (ICD-10-PCS; principal; 2017-11-14 10:08)
DX: M17.11 Unilateral primary osteoarthritis, right knee (principal); I10 Essential (primary) hypertension; K58.9 Irritable bowel syndrome, unspecified; K21.9 Gastro-esophageal reflux disease without esophagitis; E78.00 Pure hypercholesterolemia, unspecified; Z88.2 Allergy status to sulfonamides; Z88.1 Allergy status to other antibiotic agents; Z79.899 Other long term (current) drug therapy; Z79.891 Long term (current) use of opiate analgesic; Z96.652 Presence of left artificial knee joint; Z87.891 Personal history of nicotine dependence; Z79.82 Long term (current) use of aspirin; J45.909 Unspecified asthma, uncomplicated

== ENCOUNTER → 2018-10-22 | Outpatient (REF) | payer OTHER ==
[~2018-10-22] MED LIST changes: +ARTHTAB4 PO; +ASPI1TAB15 PO; +ASPI81TA26 PO; +ASTE0.15; +CAND32TA9 PO; +CHLO125TA PO; +CHLO25TA PO; +COUM1TAB17 PO; +COUM2.5T17 PO; +FENO130C PO; +LEVOTAB10 PO; +LIPI20TA PO; +LOVA1CAP17 PO; +MONT10TA2 PO; +MORP15TASA PO; +OMEP20CA3 PO; +PATA0.6S; +PERC5TAB12 PO; +TRAM1CAP15 PO; +TRAM50TA2 PO; +VITA-112 PO; +XARE10TA PO; +XYZA5TAB2 PO; -ceFAZolin 1GM INJ (J0690 PER 500MG) As Ordered
[2018-10-22 11:25] LABS: ALBUMIN 4.1 GM/DL (3.2-5.2); ALT/SGPT 46 U/L (12-78); BILIRUBIN,TOTAL 0.7 MG/DL (0.2-1.0); BLOOD UREA NITROGEN 15 MG/DL (7-18); CALCIUM LEVEL 8.4 MG/DL (8.8-10.2); CARBON DIOXIDE LEVEL 27 MEQ/L (21-32); CHLORIDE LEVEL 109 MEQ/L (98-107); CHOLESTEROL LEVEL 145 MG/DL (<200); CHOLESTEROL RISK RATIO 3.222 (<5); CREATININE FOR GFR 0.94 MG/DL (0.70-1.30); GLOMERULAR FILTRATION RATE > 60.0 (>49); GLUCOSE, FASTING 93 MG/DL (70-100); HDL CHOLESTEROL 45 MG/DL (>40); LDL CHOLESTEROL 62 MG/DL (<100); NON-HDL-C 100 MG/DL; POTASSIUM SERUM 3.9 MEQ/L (3.5-5.1); SODIUM LEVEL 142 MEQ/L (136-145); TOTAL 25(OH) VITAMIN D 47.5 NG/ML (30.0-100.0); TOTAL PROTEIN 6.8 GM/DL (6.4-8.2); TRIGLYCERIDES LEVEL 188 MG/DL (<150)
== END ==
LOC: M LAB REF 09:31
PROVIDERS: ATTEND Internal Medicine
DX: E78.2 Mixed hyperlipidemia (principal); E55.9 Vitamin D deficiency, unspecified

== ENCOUNTER → 2018-10-22 | Outpatient (CLI) | payer OTHER ==
[2018-10-22 09:41] LABS: HEMATOCRIT 40.8 % (42.0-52.0); HEMOGLOBIN 13.5 g/dl (13.5-17.5); MEAN CORPUSCULAR HEMOGLOBIN 28.2 pg (27.0-33.0); MEAN CORPUSCULAR HGB CONC 33.1 g/dl (32.0-36.5); MEAN CORPUSCULAR VOLUME 85.2 fl (80.0-96.0); PLATELET COUNT, AUTOMATED 117 10^3/uL (150-450); RED BLOOD COUNT 4.79 10^6/uL (4.30-6.10); WHITE BLOOD COUNT 5.2 10^3/uL (4.0-10.0)
[2018-10-22 09:53] LABS: INR 1.06; PROTHROMBIN TIME 13.9 SECONDS (12.1-14.4)
[2018-10-22 10:01] LABS: ALBUMIN 4.2 GM/DL (3.2-5.2); ALT/SGPT 46 U/L (12-78); BILIRUBIN,TOTAL 0.7 MG/DL (0.2-1.0); BLOOD UREA NITROGEN 16 MG/DL (7-18); CALCIUM LEVEL 8.6 MG/DL (8.8-10.2); CARBON DIOXIDE LEVEL 27 MEQ/L (21-32); CHLORIDE LEVEL 107 MEQ/L (98-107); CREATININE FOR GFR 0.94 MG/DL (0.70-1.30); GLOMERULAR FILTRATION RATE > 60.0 (>49); GLUCOSE, FASTING 97 MG/DL (70-100); POTASSIUM SERUM 3.8 MEQ/L (3.5-5.1); SODIUM LEVEL 141 MEQ/L (136-145); TOTAL PROTEIN 6.7 GM/DL (6.4-8.2)
[2018-10-22 10:27] LABS: ERYTHROCYTE SEDIMENTATION RATE 9 mm/hr (0-20)
--- NOTE | 2018-10-22 18:47 | ECGEPIP ---
Stationary ECG Study [facility] Test Date: 2018-10-22 Pat Name: GABY MULTANI Department: Room: - Gender: M Private Secretary: KYM : 1950 Requested By: Antony Lr Order Number: [id number] Reading MD: Sadi Cote Measurements Intervals [place] Rate: 64 P: 51 WV: 177 QRS: -23 QRSD: 98 T: 50 QT: 398 QTc: 411 Interpretive Statements SINUS RHYTHM BORDERLINE LEFT AXIS DEVIATION MINIMAL CHANGE SINCE 11/07/17 Electronically Signed On 10-22-2018 18:47:12 EDT by Sadi Cote
--- NOTE | 2018-10-23 02:52 | REP ---
Clinical: Preoperative assessment. Left hip replacement . Comparison: 11/07/2017 . Technique: PA and lateral. Findings: The mediastinum and cardiac silhouette are normal. The lung gil are clear and without acute consolidation, effusion, or pneumothorax. The skeletal structures are intact and normal. Impression: 1. No acute cardiopulmonary process. Electronically Signed by Felipe Aviles MD 10/23/2018 02:45 A
== END ==
LOC: M LAB 08:34
PROVIDERS: ATTEND Orthopaedic Surgery
DX: Z01.818 Encounter for other preprocedural examination (principal); M16.12 Unilateral primary osteoarthritis, left hip

== ENCOUNTER → 2018-11-01 | Outpatient (CLI) | payer OTHER ==
--- NOTE | 2018-11-07 07:22 | SLEEPHOME ---
DATE OF PROCEDURE: 11/01/2018 ORDERING PROVIDER: Kourtney Delvalle NP, copy to Mehul Ballard. INTERPRETATION: Diagnostic home sleep testing was performed due to concern for the obstructive sleep apnea syndrome in this patient with an known history of snoring and comorbidities of hypertension. For testing a nocturnal T3 respiratory monitoring device was used. Continuous record was made of pulse, oxygen saturation, airflow, chest, abdominal strain and body position. 9 hours and 59 minutes of data were reviewed. There were 6 hours and 53 minutes marked as time in bed. During the interval marked time in bed, there were 170 respiratory events identified of 10 seconds in duration or greater for a respiratory event index of 24.6. The events were obstructive. Baseline pulse rate 68, pulse rate ranged 54-94. Baseline saturation 91%. Saturations fell to 75% and the oxygen desaturation index was 24.9. Testing was performed in both the supine and non-supine positions. IMPRESSION: Abnormal home sleep testing with repetitive respiratory events and oxygen desaturations to 75% with a respiratory event index of 24.6 consistent with the obstructive sleep apnea syndrome. RECOMMENDATIONS: The patient should be encouraged to undergo formal sleep evaluation and in-laboratory pressure titration.
== END ==
LOC: M SLEEP HO 13:55
PROVIDERS: ATTEND Nurse Practitioner Family
DX: R06.83 Snoring (principal)

== ENCOUNTER 2018-11-16 07:30 | Inpatient (IN) | payer OTHER ==
--- NOTE | 2018-11-08 10:16 | HPE ---
DATE OF ADMISSION: 11/16/2018 HISTORY OF PRESENT ILLNESS: This is a pleasant male with continuing symptomatic left hip osteoarthritis. Mr. Parker has consented for a left total hip arthroplasty per Dr. Deo Navarro. Medical optimization per Dr. Ballard. X-rays are consistent with advanced osteoarthritis. ALLERGIES: - CEFTIN (hives/rash) - SULFAMETHOXAZOLE (skin rash) - TRIMETHOPRIM (skin rash) - BROMINE (skin rash) MEDICATION (List includes): - aspirin 81 mg by mouth - atorvastatin 40 mg by mouth twice a day - Candesartan 32 mg by mouth daily - chlorthalidone 12.5 Monday, Monday, Monday - cholecalciferol 1 cap by mouth weekly - diphenoxylate/atropine 2.5/0.025 mg one each by mouth every 6 hours as needed - Xyzal 5 mg by mouth daily - Nasonex one spray daily - Singulair 10 daily - Lovaza 1 gram by mouth twice a day - omeprazole 20 mg by mouth daily - tramadol HCl 50 mg which he takes one as needed pain MEDICAL PROBLEM LIST: Symptomatic left hip osteoarthritis. Essential hypertension. Irritable bowel syndrome. Mixed hyperlipidemia. Primary thrombocytopenia. Vitamin D deficiency. Arthritis. Gastroesophageal reflux disease. Generalized osteoarthritis. Hiatal hernia. Hyperlipidemia. Hypertension. Irritable colon. Right hip labral tear. Seasonal allergic rhinitis. Thrombocytopenic disorder. He does snore currently, has had a home sleep test to decide whether he has sleep apnea. PAST SURGICAL HISTORY: Bilateral knee replacement. He did have bilateral shoulder surgery. History of circumcision. Status post tonsillectomy. Cataract extraction. Insertion of intraocular lenses. SOCIAL HISTORY: He denies smoking. He does intermittently intake ethanol, controlled. Denies illicit drugs. FAMILY HISTORY: Alcoholism, carcinoma of breast, diabetes, hearing problem, hyperlipidemia, hypertension. REVIEW OF SYSTEMS: Denies chest pain, shortness of breath, dyspnea on exertion, fever, chills, malaise, upper respiratory or urinary tract symptoms. LABS: Were reviewed. Anion gap 7, calcium 8.6, hematocrit 40.8, red cell with distribution 14.9. Platelet count automated 117, seven acquired on 10/22/2018. Otherwise remaining labs are within normal limits. Chest x-ray showed no acute cardiopulmonary process via [facility] service dated 10/22/2018. EKG sinus rhythm, borderline left axis deviation, minimal change since 11/07/2018, as read by Dr. Sadi Cote. PHYSICAL EXAMINATION: Height 71.75 inches, weight 206.2, temperature 97.5, BP 142/70, respirations 16, pulse 68. This is a pleasant well-developed, well-nourished, obese male in no acute distress. He is alert and oriented times three. Mood and affect are appropriate. Ambulating without overt antalgia, assistance or favoring. Normocephalic. Neck: Supple. Negative jugular venous distention (JVD) or bruits. Chest rises symmetrically. Regular rate and rhythm. Lungs: Clear to auscultation. Abdomen soft, nontender times four. Lower extremities bilaterally benign, noninfectious looking, skin is intact. Left hip range of motion is limited and irritable throughout range of motion, positive Stinchfield test. He does have noted prior knee surgical scars. Noted bilateral hand vitiligo type presentation. IMPRESSION: 1. Left hip symptomatic osteoarthritis. 2. The patient consented for a left total hip arthroplasty per Dr. Deo Navarro. 3. Medical optimization per Dr. Ballard. 4. On-call to OR, 600 mg IV clindamycin, per Ceftin allergy. 5. Sequential compression device (SCD) and thromboembolic deterrent stockings (TEDS) in OR. 6. Awaiting pulmonary home sleep test results.
[~2018-11-16] VITALS: Ht 185.4 cm; Wt 118.3 kg
[~2018-11-16 07:30] MED LIST changes: +ASPI81TA85 PO; +ULTR50TA8 PO
[2018-11-27] VITALS (7 sets, daily range): BP systolic 127–143; BP diastolic 79–97
[2018-11-27] MEDS ORDERED: LR 1,000 ML IV ONE (06:00)
[2018-11-27] MEDS ORDERED: ACETAMINOPHEN 500 MG TAB PO ONE (06:00)
[2018-11-27] MEDS ORDERED: VANCOMYCIN HCL 1,000 MG, VIAL MATE ADAPTER 1 EACH in D5W 250 ML IV ONE ×2 (06:00→18:00)
[2018-11-27] MEDS ORDERED: ceFAZolin 1GM INJ (J0690 PER 500MG) As Ordered ONE (06:59)
[2018-11-27] MEDS ORDERED: EPINEPHrine INJ 1 MG/ML 1ML AMP As Ordered ONE (06:59)
[2018-11-27] MEDS ORDERED: CLINDAMYCIN INJ 900MG/6ML VIAL As Ordered ONE (07:08)
[2018-11-27] MEDS ORDERED: PROPOFOL 500 MG/50 ML VIAL As Ordered ONE (07:10)
[2018-11-27] MEDS ORDERED: ONDANSETRON 4MG/2ML VIAL (J2405) As Ordered ONE (07:11)
[2018-11-27] MEDS ORDERED: MIDAZOLAM INJ 2 MG/2 ML VIAL (J2250) As Ordered ONE (07:11)
[2018-11-27] MEDS ORDERED: dexameTHASONE 4 MG/ML 1ML VIAL (J1100) As Ordered ONE (07:11)
[2018-11-27] MEDS ORDERED: LIDOCAINE 2% INJ 100 MG/5 ML SDV (FOR ANES.) As Ordered ONE (07:11)
[2018-11-27] MEDS ORDERED: PHENYLephrine HCL 500 MCG/5 ML (100MCG/ML) SYRINGE (J2370) As Ordered ONE ×2 (08:21→09:10)
[2018-11-27] MEDS ORDERED: ePHEDrine SULFATE 25 MG/5 ML(5MG/ML) SYRINGE As Ordered ONE (08:33)
[2018-11-27] MEDS ORDERED: PROPOFOL 200 MG/20 ML VIAL As Ordered ONE (08:54)
[2018-11-27] MEDS ORDERED: MORPHINE 1MG/ML IN 0.9% NACL 100ML IV BAG As Ordered ONE (10:21)
[2018-11-27] MEDS ORDERED: ACETAMINOPHEN TAB 650MG DOSE (2X325MG) PO PRN (10:30)
[2018-11-27] MEDS ORDERED: FLEET ENEMA PR PRN (10:30)
[2018-11-27] MEDS: LR 1,000 ML IV SCH ×2 (10:30→23:00)
--- NOTE | 2018-11-27 10:42 | REP ---
Left hip: Two views obtained portably. History: Postop. Findings: AP and cross-table lateral views of the left hip demonstrate left hip arthroplasty components in good position. Lateral skin janusz are seen. Impression: Status post left hip arthroplasty. Electronically Signed by Jose Jackman MD 11/27/2018 10:33 A
[2018-11-27] MEDS ORDERED: oxyCODONE 5MG TAB PO PRN (10:45)
[2018-11-27] MEDS ORDERED: LR 1,000 ML IV SCH (10:45)
[2018-11-27] MEDS ORDERED: PROMETHAZINE INJ 25 MG/ML VIAL (J2550) IV PRN (10:45)
[2018-11-27] MEDS ORDERED: METOCLOPRAMIDE INJ 10MG/2ML VIAL (J2765) IV PRN (10:45)
[2018-11-27] MEDS ORDERED: fentaNYL 100 MCG/2 ML INJECTION (J3010) IV PRN (10:45)
[2018-11-27] MEDS ORDERED: MORPHINE 1MG/ML IN 0.9% NACL 100ML IV BAG IV PRN (11:00)
[2018-11-27] MEDS ORDERED: diphenhydrAMINE INJ 50MG/ML VIAL (J1200) IV PRN (11:00)
[2018-11-27] MEDS ORDERED: ONDANSETRON 4MG/2ML VIAL (J2405) IV PRN (11:00)
[2018-11-27] MEDS ORDERED: NALBUPHINE HCL 10 MG/ML AMP (J2300) IV PRN (11:00)
[2018-11-27] MEDS ORDERED: EPIDURAL/PCA KEYS XX PRN (11:00)
[2018-11-27] MEDS ORDERED: NALOXONE INJ 0.4 MG/1 ML VIAL (J2310) IV PRN (11:00)
[2018-11-27] MEDS ORDERED: LIDOCAINE 2% JELLY 6 ML SYRINGE As Ordered ONE (11:49)
[2018-11-27] MEDS ORDERED: diphenhydrAMINE 25 MG CAP PO PRN (14:30)
--- NOTE | 2018-11-27 15:09 | CR.PDOC ---
General Date of Consultation: Nov 27, 2018 Referring Provider: Dharmesh Navarro Attending Physician: STARR PINEDO MD Consultation REASON FOR CONSULTATION/CHIEF COMPLAINT: Left hip osteoarthritis HISTORY OF PRESENT ILLNESS: Patient is a 68-year-old obese male with past medical history significant for osteoarthritis requiring surgical intervention. Patient reports he had left hip pain for 6 months to one year now. believes pain started after his knees were replaced. Left hip pain got progressively worse, and oral meds where not adequately controlling his pain. Patient is evaluated postoperatively. On assessment, he denies chest pain or shortness of breath, he does report significant pain to his left hip ALLERGIES: Seasonal HOME MEDICATIONS: Please see below. PAST MEDICAL HISTORY: Hypertension Hyperlipidemia Obesity Obstructive sleep apnea Osteoarthritis. Thrombocytopenia Irritable bowel syndrome PAST SURGICAL HISTORY: Cataract Bilateral knee replacement Tonsillectomy Bilateral shoulder surgery FAMILY HISTORY: Father: Osteosarcoma Mother: Breast and ovarian cancer Siblings: Breast cancer SOCIAL HISTORY: Marital status and/or living arrangements: Tobacco use: Denies ETOH: Occasional Illicit drug use: Denies REVIEW OF SYSTEMS: A pertinent 10 point review of systems was completed, negative except as stated in the history of presenting illness PHYSICAL EXAMINATION: GENERAL: Obese male in NAD SKIN : Warm, dry, intact left hip surgical site HEENT: Atraumatic, normocephalic, PERRL, moist mucous membrane CARDIOVASCULAR: Regular rate and rhythm, S1S2, no JVD, no edema, distal pulses + and palpable RESP: CTAB, no accessory muscle use noted ABDOMEN: BS+ non distended non tender MS: no joint deformities NEURO: Alert and oriented x 3, CN2-12 grossly intact PSYCH: no anxiety or agitation, appropriate mood and affect. ASSESSMENT/PLAN: Left hip osteoarthritis -Status post left hip replacement -there were no perioperative events. -Management by primary team Hypertension -Continue JN inhibitor -Blood pressure monitoring per unit protocol -Target systolic blood pressure less than 140 Obstructive sleep apnea -Patient has brought his own home CPAP -Orders have been placed for him to use -Continuous bedside telemetry postoperatively for 24 hours Hyperlipidemia -Statin therapy with atorvastatin DVT prophylaxis -Fully anticoagulated Vital Signs/I&O Vital Signs Date Time Temp Pulse Resp B/P (MAP) Pulse Ox O2 Delivery O2 Flow Rate FiO2 11/27/18 13:30 3.0 11/27/18 13:09 79 18 126/89 (101) 98 11/27/18 10:08 96.9 Allergies Coded Allergies: Sulfa (Sulfonamide Antibiotics) (Verified Allergy, Intermediate, hives, 11/27/18) cefuroxime (Verified Allergy, Intermediate, hives, 11/27/18) Home Medications Scheduled Aspirin (Aspir 81) 81 Mg Tablet.dr, 81 MG PO DAILY for pain for 30 Days, #30 (Reported) Atorvastatin Calcium (Lipitor) 20 Mg Tab, 20 MG PO BID, (Reported) Azelastine HCl (Astepro) 0.15 % Spr, 2 SPRAY NA DAILY, (Reported) Candesartan Cilexetil (Candesartan Cilexetil) 32 Mg Tab, 32 MG PO DAILY, (Reported) Chlorthalidone (Chlorthalidone) 12.5 Mg Halftab, 12.5 MG PO 3XW, (Reported) Monday Levocetirizine Dihydrochloride (Levocetirizine Dihydrochloride) 5 Mg Tablet, 5 MG PO DAILY, (Reported) Montelukast Sodium (Montelukast Sodium) 10 Mg Tab, 10 MG PO DAILY, (Reported) [place]-3 Acid Ethyl Esters (Lovaza) 1 Cap Cap, 1 CAP PO BID, (Reported) Omeprazole (Omeprazole) 20 Mg Cap, 20 MG PO DAILY, (Reported) Scheduled PRN Tramadol HCl (Ultram) 50 Mg Tablet, 50 MG PO Q6HP PRN for pain for 7 Days, #30 (Reported) MADELYN BELTRAN Nov 27, 2018 15:09
--- NOTE | 2018-11-27 18:31 | RO ---
DATE OF PROCEDURE: 11/27/2018 PREPROCEDURE DIAGNOSIS: Left hip degenerative arthritis. POSTPROCEDURE DIAGNOSIS: Left hip degenerative arthritis. PROCEDURE: Left total hip arthroplasty using a size 54 Gription cup with a 36 mm neutral liner and a size 6 high offset [place] stem with a 1.5 neck, 36 mm head. SURGEON: Dr. Andrea Navarro ROOMS DIRECTOR: Ms. Jen Lr ANESTHESIA: Spinal. ESTIMATED BLOOD LOSS: 200 mL. SPECIMENS: Femoral head. COMPLICATIONS: None. DESCRIPTION OF PROCEDURE: Antibiotics were given intravenously preoperatively and then successful spinal anesthetic was induced, and he was placed in the lateral decubitus position, left hip upper most. Fabian hip positioner was utilized, axillary roll utilized, down leg well padded, especially peroneal nerve. The left hip area was then carefully prepped and draped in the usual sterile fashion. After appropriate time-out, longitudinal incision was made for a direct anterolateral approach to the hip. Bovie cautery was used to coagulate crossing vessels down to the tensor fascia, which was then divided in line with the skin incision. We split the gluteus medius, anterior one-third, posterior two-third junction and carefully dissected off the proximal femur anteriorly as we eventually were able to dislocate the hip anteriorly into the leg bag. The piriformis fossa was visualized, starter reamer placed, followed by the canal finding reamer and then the lateralizing reamer. Then, we reamed up to a size 6, then femoral neck osteotomy performed using a template, and then we broached eventually up to a size 6. We then exposed the acetabulum, performed a labral excision 360 degrees, then began reaming the acetabulum beginning at 48 mm, advancing to 53. The trial 54 fit very nicely. There was a sizable anterior osteophyte noted. Once we down seated and we placed the real cup, using the extramedullary guide to estimate our version and abduction angle, and then the cup fit very nicely. Central hole eliminator placed, irrigated and placed the neutral 36 liner and made sure it was seated nicely. Trial #6 broach was then placed. We chose the high offset stem given the anatomy of his hip on the x-rays, and we did deepen the cup down to the teardrop. The 1.5 size neck gave good stability and the cup was in good position with good stability to flexion internal rotation and extension external rotation. Thus, we then removed the trials, we irrigated copiously, especially the femoral canal, then placed the real #6 high offset stem, dried the trunnion and then placed the real 1.5 head/neck combination with a 36 mm ball and reduced the hip once again after irrigating. We then carefully and meticulously closed the abductors, both the gluteus minimus and medius back anatomically with interrupted #1 PDS sutures and irrigated between layers. Closed the tensor fascia with a combination of #1 PDS sutures and a running #1 Stratafix. Irrigated between layers, closed the deep subdermal tissue with interrupted #2-0 PDS suture, and the skin was closed with janusz, covered by a Optifoam and a dry sterile bulky dressing. He was then turned supine and then transferred to the recovery room in stable condition. There were no intraoperative complications. Ms. Jen Lr was critical to the success of this difficult surgery of his very large leg by helping to manipulate the leg in and out of the leg bag several times, helped to dislocate and relocate the hip, helped with appropriate soft tissue retraction, helped to close the wound, helped to prepare the patient amongst many other tasks.
[2018-11-27] MEDS: ATORVASTATIN 20 MG TAB PO SCH (20:49)
[2018-11-28 02:00] VITALS: BP 140/86
[2018-11-28 06:00] VITALS: BP 147/88
[2018-11-28] MEDS ORDERED: ONDANSETRON 4 MG TAB (S0181) PO PRN (06:15)
[2018-11-28] MEDS ORDERED: PERCOCET 5MG/325MG TAB PO PRN ×2 (06:15)
[2018-11-28 07:30] LABS: HEMATOCRIT 36.8 % (42.0-52.0); HEMOGLOBIN 12.2 g/dl (13.5-17.5); MEAN CORPUSCULAR HEMOGLOBIN 28.3 pg (27.0-33.0); MEAN CORPUSCULAR HGB CONC 33.2 g/dl (32.0-36.5); MEAN CORPUSCULAR VOLUME 85.4 fl (80.0-96.0); PLATELET COUNT, AUTOMATED 146 10^3/uL (150-450); RED BLOOD COUNT 4.31 10^6/uL (4.30-6.10); WHITE BLOOD COUNT 8.3 10^3/uL (4.0-10.0)
[2018-11-28] MEDS ORDERED: XARE10TA PO (07:48)
[2018-11-28] MEDS ORDERED: PERC5TAB12 PO (07:48)
[2018-11-28 07:56] LABS: BLOOD UREA NITROGEN 14 MG/DL (7-18); CALCIUM LEVEL 8.6 MG/DL (8.8-10.2); CARBON DIOXIDE LEVEL 31 MEQ/L (21-32); CHLORIDE LEVEL 104 MEQ/L (98-107); CREATININE FOR GFR 0.97 MG/DL (0.70-1.30); GLOMERULAR FILTRATION RATE > 60.0 (>49); GLUCOSE, FASTING 146 MG/DL (70-100); POTASSIUM SERUM 4.2 MEQ/L (3.5-5.1); SODIUM LEVEL 139 MEQ/L (136-145)
[2018-11-28] MEDS ORDERED: MORPHINE 15 MG SA TAB PO ONE (08:00)
[2018-11-28] MEDS ORDERED: ASPIRIN 81 MG ENTERIC TAB PO SCH (09:00)
[2018-11-28] MEDS ORDERED: CHLORTHALIDONE 12.5MG PER 1/2 TABLET PO SCH (09:00)
[2018-11-28] MEDS: AZELASTINE 137MCG NASAL SPY 30 ML (ASTELIN) SCH (10:03)
[2018-11-28] MEDS: MIRALAX *UNIT DOSE* 17GM PACKET PO SCH (10:03)
[2018-11-28] MEDS: MONTELUKAST 10 MG TAB PO SCH (10:03)
[2018-11-28] MEDS: MOM 30ML SUSPENSION UDC PO SCH (10:03)
[2018-11-28] MEDS: ATORVASTATIN 20 MG TAB PO SCH ×2 (10:04→21:48)
[2018-11-28] MEDS: OMEPRAZOLE 20 MG CAP PO SCH (10:04)
[2018-11-28] MEDS: CANDESARTAN 16 MG TABLET PO SCH (10:05)
[2018-11-28 10:15] VITALS: BP 147/88
[2018-11-28 14:30] VITALS: BP 142/78
[2018-11-28] MEDS ORDERED: traMADol 50 MG TAB PO PRN ×2 (14:30)
--- NOTE | 2018-11-28 14:37 | IPNPDOC ---
Text Note Date of Service The patient was seen on 11/28/18. NOTE S: patient states increased pain today, nausea with pain, decreased appetite. Worked with PT twice today. 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 No stool today but does not feel constipated. Using CPAP at night to sleep O: Vitals as below General: pleasant, Mild distress from hip pain HRRR LCTA Abdomen: soft NT ND NABS A/P: Left hip osteoarthritis - post op and pain management per ortho; will add ensure or protein shake equivelent as patient is not eating meals due to pain induced nausea. Hypertension - stable with current meds Obstructive sleep apnea - continue CPAP at HS Hyperlipidemia- continue with lipitor Will follow peripherally VS,Fishbone, I+O VS, Fishbone, I+O Laboratory Tests 11/28/18 06:48 Red Blood Count 4.31, Mean Corpuscular Volume 85.4, Mean Corpuscular Hemoglobin 28.3, Mean Corpuscular Hemoglobin Concent 33.2, Red Cell Distribution Width 15.4 H, Calcium Level 8.6 L Vital Signs Date Time Temp Pulse Resp B/P (MAP) Pulse Ox O2 Delivery O2 Flow Rate FiO2 11/28/18 10:04 18 11/28/18 06:00 98.9 87 147/88 (107) 97 11/28/18 02:00 3.0 I&O- Last 24 Hours up to 6 AM 11/28/18 06:00 Intake Total 3710 ml Output Total 900 ml Balance 2810 ml CARMEN PARDO DO Nov 28, 2018 14:37
[2018-11-28] MEDS: ACETAMINOPHEN 500 MG TAB PO SCH ×2 (14:43→21:48)
[2018-11-28] MEDS ORDERED: MORPHINE 4 MG/ML 1ML VIAL/SYRINGE (J2270) IV ONE (15:00)
[2018-11-28] MEDS ORDERED: RIVAROXABAN 10 MG TAB (XARELTO) PO SCH (18:00)
[2018-11-28] MEDS: MORPHINE 15 MG SA TAB PO SCH (21:49)
[2018-11-28 22:00] VITALS: BP 148/87
[2018-11-29 06:00] VITALS: BP 150/83
[2018-11-29] MEDS: ACETAMINOPHEN 500 MG TAB PO SCH (06:19)
[2018-11-29 07:22] LABS: HEMATOCRIT 38.4 % (42.0-52.0); HEMOGLOBIN 12.8 g/dl (13.5-17.5); MEAN CORPUSCULAR HEMOGLOBIN 28.8 pg (27.0-33.0); MEAN CORPUSCULAR HGB CONC 33.3 g/dl (32.0-36.5); MEAN CORPUSCULAR VOLUME 86.5 fl (80.0-96.0); PLATELET COUNT, AUTOMATED 119 10^3/uL (150-450); RED BLOOD COUNT 4.44 10^6/uL (4.30-6.10); WHITE BLOOD COUNT 7.7 10^3/uL (4.0-10.0)
[2018-11-29 07:58] LABS: BLOOD UREA NITROGEN 12 MG/DL (7-18); CALCIUM LEVEL 8.7 MG/DL (8.8-10.2); CARBON DIOXIDE LEVEL 29 MEQ/L (21-32); CHLORIDE LEVEL 102 MEQ/L (98-107); CREATININE FOR GFR 0.85 MG/DL (0.70-1.30); GLOMERULAR FILTRATION RATE > 60.0 (>49); GLUCOSE, FASTING 121 MG/DL (70-100); POTASSIUM SERUM 4.7 MEQ/L (3.5-5.1); SODIUM LEVEL 136 MEQ/L (136-145)
[2018-11-29] MEDS: MIRALAX *UNIT DOSE* 17GM PACKET PO SCH (09:17)
[2018-11-29] MEDS: MOM 30ML SUSPENSION UDC PO SCH (09:17)
[2018-11-29] MEDS: AZELASTINE 137MCG NASAL SPY 30 ML (ASTELIN) SCH (09:19)
[2018-11-29] MEDS: ATORVASTATIN 20 MG TAB PO SCH (09:19)
[2018-11-29] MEDS: CANDESARTAN 16 MG TABLET PO SCH (09:19)
[2018-11-29] MEDS: MONTELUKAST 10 MG TAB PO SCH (09:20)
[2018-11-29] MEDS: MORPHINE 15 MG SA TAB PO SCH (09:21)
[2018-11-29] MEDS: OMEPRAZOLE 20 MG CAP PO SCH (09:21)
== END 2018-11-29 11:30 | disposition home or self-care (01) | DRG 470 ==
LOC: M OR 11-27 05:38 → M MS5PR 11-27 13:30
PROVIDERS: ADMIT Orthopaedic Surgery; ATTEND Orthopaedic Surgery
PROC: 0SRB0JZ Replacement of Left Hip Joint with Synthetic Substitute, Open Approach (ICD-10-PCS; principal; 2018-11-27 07:30)
DX: M16.12 Unilateral primary osteoarthritis, left hip (principal); Z79.82 Long term (current) use of aspirin; Z79.899 Other long term (current) drug therapy; Z88.2 Allergy status to sulfonamides; Z88.8 Allergy status to other drugs, medicaments and biological substances; I10 Essential (primary) hypertension; E55.9 Vitamin D deficiency, unspecified; K21.9 Gastro-esophageal reflux disease without esophagitis; D69.6 Thrombocytopenia, unspecified; K44.9 Diaphragmatic hernia without obstruction or gangrene; E78.5 Hyperlipidemia, unspecified; Z96.651 Presence of right artificial knee joint; Z96.652 Presence of left artificial knee joint; E66.9 Obesity, unspecified; G47.33 Obstructive sleep apnea (adult) (pediatric); K58.8 Other irritable bowel syndrome

== ENCOUNTER → 2019-10-28 | Outpatient (CLI) | payer OTHER ==
[~2019-10-28] MED LIST changes: +AZEL0.055 NARES; +ECOT81TA5 PO; -FENO130C PO; +FENO1CAP17 PO; -MONT10TA2 PO; +MONT10TA4 PO; +OMEP1CAP73 PO; -OMEP20CA3 PO; +VITA50005 PO; +ZINC30TA2 PO
--- NOTE | 2019-10-29 07:56 | ECGEPIP ---
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
== END ==
LOC: M EKG 14:05
PROVIDERS: ATTEND Anesthesiology
DX: I10 Essential (primary) hypertension (principal)

== ENCOUNTER → 2019-10-28 | Outpatient (CLI) | payer OTHER | LOC: M LABSMTC 13:27 | PROVIDERS: ATTEND Anesthesiology | DX: Z01.818 Encounter for other preprocedural examination (principal); Z11.59 Encounter for screening for other viral diseases | CPT/HCPCS: C9803; U0003 ==

== ENCOUNTER 2019-10-31 09:14 | Day surgery (SDC) | payer OTHER ==
[~2019-10-31] VITALS: Ht 182.9 cm; Wt 119.7 kg
[~2019-10-31 09:14] MED LIST changes: +LR 1,000 ML IV ONE; -ZINC30TA2 PO
[2019-10-31] MEDS ORDERED: ROPIvacaine 0.5% 30ML INJECTION (J2795 PER 1MG) As Ordered ONE (09:21)
[2019-10-31] MEDS ORDERED: ZINC30TA2 PO (09:51)
[2019-10-31] MEDS ORDERED: ceFAZolin 2 GM/D5W 50 ML IV BAG (J0690 PER 500MG) As Ordered ONE (10:49)
[2019-10-31] MEDS ORDERED: VANCOMYCIN HCL 1,000 MG, VIAL MATE ADAPTER 1 EACH in D5W 250 ML IV ONE (11:15)
[2019-10-31] MEDS ORDERED: propofoL 200 MG/20 ML VIAL As Ordered ONE (11:47)
[2019-10-31] MEDS ORDERED: dexameTHASONE 4 MG/ML 1ML VIAL (J1100 PER 1MG) As Ordered ONE (11:47)
[2019-10-31] MEDS ORDERED: MIDAZOLAM INJ 2MG/2ML VIAL (J2250 PER 1MG) As Ordered ONE (11:47)
[2019-10-31] MEDS ORDERED: LIDOCAINE 2% 100MG/5ML SDV (FOR ANES.) As Ordered ONE (11:47)
[2019-10-31] MEDS ORDERED: ONDANSETRON 4MG/2ML VIAL As Ordered ONE (11:47)
[2019-10-31] MEDS ORDERED: fentaNYL 100 MCG/2 ML INJECTION (J3010) As Ordered ONE (11:47)
[2019-10-31] MEDS ORDERED: ePHEDrine SULFATE 25 MG/5 ML(5MG/ML) SYRINGE As Ordered ONE (12:08)
[2019-10-31] MEDS ORDERED: MORPHINE 2 MG/ML 1ML VIAL (J2270) IV PRN (12:45)
[2019-10-31] MEDS ORDERED: PERCOCET 5MG/325MG TAB PO PRN ×2 (12:45)
[2019-10-31] MEDS ORDERED: ONDANSETRON 4MG/2ML VIAL IV PRN (12:45)
[2019-10-31] MEDS ORDERED: LR 1,000 ML IV SCH ×2 (12:45)
[2019-10-31] MEDS ORDERED: oxyCODONE 5MG TAB PO PRN (12:45)
[2019-10-31] MEDS ORDERED: fentaNYL 100 MCG/2 ML INJECTION (J3010) IV PRN (12:45)
[2019-10-31 14:35] VITALS: BP 120/76
--- NOTE | 2019-11-05 11:49 | RO ---
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 PROCEDURE: Right knee arthroscopic complete synovectomy. SURGEON: Dr. Andrea Navarro LATHER APPRENTICE: ANESTHESIA: General endotracheal tube anesthetic. COMPLICATIONS: None. ESTIMATED BLOOD LOSS: Less than 20 mL. FINDINGS: He did have extensive arthrofibrosis around the anterior aspect of the knee and the suprapatellar pouch and medial and lateral gutters. No other pathology was identifiable. The joint fluid looked normal. DESCRIPTION OF PROCEDURE: Antibiotics were given intravenously preoperatively with vancomycin. Then a general endotracheal tube anesthetic was established, a tourniquet placed on the right upper thigh and not inflated. The right lower extremity was carefully prepped and draped in the usual sterile fashion and then elevated. After appropriate time out, the tourniquet was inflated. We established an anterolateral visualization portal with the scope and then an anteromedial working portal under direct visualization using a spinal needle. There was quite a bit of fibrous tissue noted anteriorly and superiorly. Photographs were taken. I then began systemically performing a formal synovectomy beginning first in the medial gutter, then the anteromedial compartment of the knee and then up into the suprapatellar pouch. Then I switched the visualization of the anteromedial port with the scope and place a shaver anterolaterally and began the debridement also into the lateral gutter now and also the anterolateral compartment and then up into the suprapatellar pouch again. I kept switching back and forth the visualization portal with the working portal such that I was satisfied that all arthrofibrotic soft tissues in the anterior and suprapatellar pouches as well as medial and lateral gutters were well debrided in hopes of eliminating the chance that there was a persistent catching or clunk syndrome. Photographs were taken afterwards. A complete synovectomy was felt to have been obtained at this point. No other pathology was noted. Thus, I concluded the procedure by copiously irrigating out the joint and closing the two arthroscopy portals with nylon sutures covered by Adaptic and dry sterile bulky dressing. Then the tourniquet was released and he was awakened from endotracheal tube anesthesia after having tolerated the procedure well. He was transferred to the recovery room in stable condition. There were no intraoperative complications.
== END 2019-10-31 14:35 | disposition home or self-care (01) ==
LOC: M SDC 09:14
PROVIDERS: ATTEND Orthopaedic Surgery
DX: M24.661 Ankylosis, right knee (principal); M25.861 Other specified joint disorders, right knee; Z96.651 Presence of right artificial knee joint; I10 Essential (primary) hypertension; R01.1 Cardiac murmur, unspecified; E78.00 Pure hypercholesterolemia, unspecified; K58.9 Irritable bowel syndrome, unspecified; R12 Heartburn; M19.90 Unspecified osteoarthritis, unspecified site; G47.30 Sleep apnea, unspecified; K44.9 Diaphragmatic hernia without obstruction or gangrene; Z88.1 Allergy status to other antibiotic agents; Z88.2 Allergy status to sulfonamides; Z79.899 Other long term (current) drug therapy; Z79.82 Long term (current) use of aspirin; J30.9 Allergic rhinitis, unspecified
CPT/HCPCS: 29876; J1100; J2250; J2405; J3010; J3370

== ENCOUNTER 2020-11-16 08:46 | Emergency (ER) | payer BC, OTHER, MEDICARE ==
[~2020-11-16] VITALS: Ht 182.9 cm; Wt 120.4 kg
[~2020-11-16 08:46] MED LIST changes: +ASPI-546 PO; -ASPI1TAB15 PO; -ASPI81TA85 PO; +ASPI81TA86 PO; -FENO1CAP17 PO; +FENO1CAP18 PO; -LR 1,000 ML IV ONE; +MONT10TA10 PO; -MONT10TA4 PO; +ZINC30TA2 PO
[2020-11-16 09:37] LABS: BASO % 0.5 % (0.0-1.0); EOS # 0.2 10^3/uL (0.0-0.5); EOS % 5.5 % (0.0-3.0); HEMOGLOBIN 13.7 g/dl (13.5-17.5); LYMPH # 0.9 10^3/uL (1.5-5.0); LYMPH % 22.5 % (24.0-44.0); MEAN CORPUSCULAR HEMOGLOBIN 28.7 pg (27.0-33.0); MEAN CORPUSCULAR HGB CONC 33.4 g/dl (32.0-36.5); MONO # 0.4 10^3/uL (0.0-0.8); MONO % 9.1 % (2.0-8.0); NEUTROPHILS # 2.6 10^3/uL (1.5-8.5); NEUTROPHILS % 62.2 % (36.0-66.0); PLATELET COUNT, AUTOMATED 122 10^3/uL (150-450); RED BLOOD COUNT 4.77 10^6/uL (4.30-6.10); WHITE BLOOD COUNT 4.2 10^3/uL (4.0-10.0)
--- NOTE | 2020-11-16 09:51 | REP ---
INDICATION: palpitations. COMPARISON: 10/22/2018 the latest prior TECHNIQUE: Portable FINDINGS: The technique utilized in obtaining the radiograph has magnified the cardiac silhouette and attenuated the interstitial markings. Cardiomediastinal silhouette is unchanged. The heart is not enlarged. The lung gil are clear, however, the right CP angle has not been included on the radiograph. There is no significant change in appearance of the osseous structures. IMPRESSION: Negative but limited portable examination of the chest as described above. <Electronically signed by Sy Molina > 11/16/20 [id number]
[2020-11-16 10:06] LABS: BLOOD UREA NITROGEN 15 MG/DL (7-18); CARBON DIOXIDE LEVEL 27 MEQ/L (21-32); CHLORIDE LEVEL 107 MEQ/L (98-107); CK-MB VALUE MASS 1.2 NG/ML (<3.6); CPK CREATINE PHOSPHOKINASE 179 U/L (39-308); CREATININE FOR GFR 0.91 MG/DL (0.70-1.30); GLOMERULAR FILTRATION RATE > 60.0 (>49); GLUCOSE, FASTING 107 MG/DL (70-100); MB/CK RELATIVE INDEX 0.67 (< OR =4); POTASSIUM SERUM 3.9 MEQ/L (3.5-5.1); SODIUM LEVEL 139 MEQ/L (136-145); TROPONIN I < 0.02 NG/ML (< 0.10)
[2020-11-16 10:45] VITALS: BP 150/89
--- NOTE | 2020-11-17 05:20 | ECGEPIP ---
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
== END 2020-11-16 11:02 | disposition home or self-care (01) ==
LOC: M ED 08:46
DX: I49.1 Atrial premature depolarization (principal); R00.2 Palpitations; I10 Essential (primary) hypertension; E78.5 Hyperlipidemia, unspecified; K21.9 Gastro-esophageal reflux disease without esophagitis; K58.9 Irritable bowel syndrome, unspecified; Z88.1 Allergy status to other antibiotic agents; Z88.2 Allergy status to sulfonamides; Z88.8 Allergy status to other drugs, medicaments and biological substances

== ENCOUNTER → 2021-06-01 | Outpatient (CLI) | payer OTHER ==
[~2021-06-01] MED LIST changes: +ERGO500029 PO; -VITA50005 PO
--- NOTE | 2021-06-01 14:33 | REP ---
INDICATION: RT ARTIFICIAL KNEE JOINT. COMPARISON: None. TECHNIQUE/RADIOTRACER AND DOSE: After the intravenous administration of 22.0 mCi of technetium 99 M MDP a triple phase bone scan of the knees was obtained. FINDINGS: No abnormal increased or decreased activity seen on the flow portion of the exam. The blood pool images show normal photopenic defects in each knee secondary to bilateral knee arthroplasty. Delayed imaging shows slightly increased periprosthetic activity and a nonspecific fashion. IMPRESSION: Nonspecific activity seen only on the delayed scintiscans. There is no evidence of loosening or infection at this time. <Electronically signed by Sy Molina > 06/01/21 3200
== END ==
LOC: M RAD 07:04
PROVIDERS: ATTEND Physician Assistant
DX: Z96.651 Presence of right artificial knee joint (principal)
CPT/HCPCS: 78315; A9503

== ENCOUNTER → 2021-07-13 | Outpatient (CLI) | payer OTHER ==
[~2021-07-13] MED LIST changes: +CAND32TA18 PO; -CAND32TA9 PO; -MONT10TA10 PO; +MONT10TA97 PO
== END ==
LOC: M PLAIMG 09:28
PROVIDERS: ATTEND Physician Assistant
DX: M25.561 Pain in right knee (principal); Z96.651 Presence of right artificial knee joint

== ENCOUNTER 2024-07-06 08:08 | Emergency (ER) | payer BC, OTHER, MEDICARE ==
[~2024-07-06] VITALS: Ht 182.9 cm; Wt 119.3 kg
[~2024-07-06 08:08] MED LIST changes: -AZEL0.055 NARES; +AZEL1SPR4 NARES
[2024-07-06 08:11] VITALS: TEMP 96.7; O2SAT 96
[2024-07-06] MEDS ORDERED: PRED20TA PO (09:39)
[2024-07-06 09:47] VITALS: BP 162/94
== END 2024-07-06 09:49 | disposition home or self-care (01) ==
LOC: M ED 08:08
DX: M79.671 Pain in right foot (principal); M19.071 Primary osteoarthritis, right ankle and foot; I10 Essential (primary) hypertension; Z88.2 Allergy status to sulfonamides; Z88.8 Allergy status to other drugs, medicaments and biological substances

== ENCOUNTER → 2025-03-25 | Outpatient (CLI) | payer MEDICARE, BC ==
[~2025-03-25] MED LIST changes: +MORP-138 PO; -MORP15TASA PO; +PRED20TA PO
== END ==
LOC: M PLAIMG 09:30
PROVIDERS: ATTEND Physician Assistant
DX: I11.9 Hypertensive heart disease without heart failure (principal); I71.21 Aneurysm of the ascending aorta, without rupture